=== PATIENT | female | born 1995 | race American Indian/Alaskan Native ===

== ENCOUNTER 2018-07-08 10:51 | Emergency (ER) | payer SELFPAY ==
[2018-07-08 11:03] VITALS: BP 111/60
[2018-07-08 16:23] LABS: HCG Qualitative,Urine Negative (Negative)
[2018-07-08 16:28] LABS: Bacteria,Urine 1+ /HPF (Negative); Bilirubin,Urine NEG (Negative); Blood,Urine MOD (Negative); Color,Urine Yellow (Yellow); Mucus,Urine FEW /HPF; Protein,Urine <15 mg/dL mg/dL (Negative); Urobilinogen,Urine < 2.0 mg/dL (<2.0)
== END 2018-07-08 11:53 | disposition left against medical advice (07) ==
LOC: ED 10:51
DX: R09.81 Nasal congestion (principal); Z53.21 Procedure and treatment not carried out due to patient leaving prior to being seen by health care provider
CPT/HCPCS: 81001; 81025

== ENCOUNTER 2018-07-15 13:17 | Emergency (ER) | payer SELFPAY ==
--- NOTE | 2018-07-15 13:41 | Emergency Department Report ---
Blank Doc - Documentation Documentation: 23 y/o female presents to ed c/o pelvic aches and vaginal bleedin since jul 09. neg preg test x3. unsure of std wants full check. no fever or chills. Plan urine, labs, possible pelvic exam
[2018-07-15 13:57] VITALS: BP 145/84
[2018-07-15 14:54] LABS: Bacteria,Urine 1+ /HPF (Negative); Bilirubin,Urine NEG (Negative); Blood,Urine LG (Negative); Color,Urine Yellow (Yellow); Mucus,Urine FEW /HPF; Urobilinogen,Urine < 2.0 mg/dL (<2.0)
[2018-07-15 14:57] LABS: HCG Qualitative,Urine Negative (Negative); RBC,Urine > 182.0 /HPF (0.0-6.0)
[2018-07-15] MEDS ORDERED: IBUPROFEN PO ONE (15:07)
[2018-07-15] MEDS ORDERED: ULTRAM PO ONE (15:07)
--- NOTE | 2018-07-15 16:24 | Emergency Department Report ---
<LARRY PANDYA - Last Filed: 07/15/18 16:22> ED Female HPI - General Chief complaint: Vaginal Bleeding Stated complaint: HEAVY BLEEDING/STOAMCH PAIN Time Seen by Provider: 07/15/18 13:39 Source: patient Mode of arrival: Ambulatory Limitations: No Limitations - History of Present Illness Initial comments: Patient is a 23-year-old asthmatic femalewith a past medical history who is complaining of 2 weeks of vaginal bleeding. Patient states that earlier this month she started having some spotting which is now progressed to heavier menstrual bleeding with cramps. Patient states the lower abdominal cramps are in the left lower quadrant of 6 out of 10 in severity. Patient denies any fevers chills or vaginal discharge or urinary frequency or dysuria. Patient has not had heavy bleeding to this magnitude before. - Related Data Previous Rx's Medication Instructions Recorded Last Taken Type medroxyPROGESTERone ACETATE 10 mg PO DAILY #10 tablet 07/15/18 Unknown Rx [Medroxyprogesterone Acetate] Allergies Allergy/AdvReac Type Severity Reaction Status Date / Time No Known Allergies Allergy Verified 07/08/18 11:02 ED Review of Systems Comment: All other systems reviewed and negative ED Past Medical Hx - Past Medical History Hx Asthma: Yes - Surgical History Past Surgical History?: No - Social History Smoking Status: Never Smoker Substance Use Type: Alcohol, Marijuana - Medications Home Medications: Home Medications Medication Instructions Recorded Confirmed Last Taken Type medroxyPROGESTERone ACETATE 10 mg PO DAILY #10 tablet 07/15/18 Unknown Rx [Medroxyprogesterone Acetate] ED Physical Exam - General Limitations: No Limitations General appearance: alert, in no apparent distress - Head Head exam: Present: atraumatic, normocephalic - Eye Eye exam: Present: normal appearance - ENT ENT exam: Present: mucous membranes moist - Neck Neck exam: Present: normal inspection - Respiratory Respiratory exam: Present: normal lung sounds bilaterally. Absent: respiratory distress, wheezes, rales - Cardiovascular Cardiovascular Exam: Present: regular rate, normal rhythm. Absent: systolic murmur, diastolic murmur, rubs, gallop - GI/Abdominal GI/Abdominal exam: Present: soft, tenderness (llq), normal bowel sounds. Absent: distended, guarding, rebound, rigid - Extremities Exam Extremities exam: Present: normal inspection - Back Exam Back exam: Present: normal inspection - Neurological Exam Neurological exam: Present: alert, oriented X3 - Psychiatric Psychiatric exam: Present: normal affect, normal mood - Skin Skin exam: Present: warm, dry, intact, normal color. Absent: rash ED Medical Decision Making - Lab Data Lab Results 07/15/18 Range/Units 14:31 Urine Color Yellow (Yellow) Urine Turbidity Slightly-cloudy (Clear) Urine pH 5.0 (5.0-7.0) Ur Specific Eclectic 1.023 (1.003-1.030) Urine Protein 30 mg/dl (Negative) mg/dL Urine Glucose (UA) Neg (Negative) mg/dL Urine Ketones Neg (Negative) mg/dL Urine Blood Lg (Negative) Urine Nitrite Neg (Negative) Urine Bilirubin Neg (Negative) Urine Urobilinogen < 2.0 (<2.0) mg/dL Ur Leukocyte Esterase Neg (Negative) Urine WBC (Auto) 19.0 H (0.0-6.0) /HPF Urine RBC (Auto) > 182.0 (0.0-6.0) /HPF U Epithel Cells (Auto) 5.0 (0-13.0) /HPF Urine Bacteria (Auto) 1+ (Negative) /HPF Urine Mucus Few /HPF Urine HCG, Qual Negative (Negative) ED Disposition Clinical Impression: Vaginal bleeding, Dysfunctional uterine bleeding Abdominal pain Qualifiers: Abdominal location: left lower quadrant Qualified Code(s): R10.32 - Left lower quadrant pain Ovarian cyst Qualifiers: Laterality: left Qualified Code(s): N83.202 - Unspecified ovarian cyst, left side Menorrhagia Qualifiers: Menorrahagia type: with irregular cycle Qualified Code(s): N92.1 - Excessive and frequent menstruation with irregular cycle Disposition: DC-01 TO HOME OR SELFCARE Condition: Stable Instructions: Dysfunctional Uterine Bleeding (ED), Menorrhagia (ED), Ovarian Cyst (ED) Additional Instructions: Take progesterone tablets daily for 5-10 days until bleeding stops. Take ibuprofen every 6-8 hours as needed for pain. Follow-up with a health education aide for continued management of ovarian cyst and abnormal vaginal bleeding. Return to the emergency room if pain is increased and bleeding is resolved as discussed. Prescriptions: medroxyPROGESTERone ACETATE [Medroxyprogesterone Acetate] 10 mg PO DAILY #10 tablet Referrals: JOSE ARAUJO MD [Primary Care Provider] - 3-5 Days [facility] [Provider Group] - 3-5 Days [facility] [Provider Group] - 3-5 Days [facility] [Provider Group] - 3-5 Days Forms: Work/School Release Form(ED) <SANJAY FERNÁNDEZ - Last Filed: 07/15/18 20:30> ED Review of Systems ROS: Stated complaint: HEAVY BLEEDING/STOAMCH PAIN Other details as noted in HPI ED Course Vital Signs 07/15/18 07/15/18 07/15/18 13:54 15:10 15:13 Temperature 97.9 F Pulse Rate 67 Respiratory 18 18 18 Rate Blood Pressure 145/84 O2 Sat by Pulse 99 Oximetry ED Medical Decision Making - Radiology Data Radiology results: report reviewed FINAL REPORT EXAM: US TRANSVAGINAL HISTORY: 2 weeks of continuous vag bleeding TECHNIQUE: Ultrasound pelvis transvaginal PRIORS: None. FINDINGS: Uterus is 8.2 x 3.6 x 5.5 centimeters No focal myometrial abnormality identified Endometrial stripe is 0.5 centimeters Right ovary is 4.0 x 2.6 x 2.8 centimeters. Normal sonographic appearance of the right ovary Left ovary is 3.4 x 1.9 x 3.6 centimeters. Noted is a 2 centimeter complex cystic focus in the left ovary likely a involuting cyst. Incidentally noted is a nabothian cyst in the cervix IMPRESSION: 2 centimeters cyst left ovary likely involuting follicular cyst Otherwise negative study - Medical Decision Making Patient was examined by Dr. Pandya and myself. Vitals are normal and patient is in no acute distress. Obtained a urinalysis, urine and urine hCG, and pelvis ultrasound. X-rays dictated by radiologist and report reviewed by myself. 2 centimeters cyst left ovary likely involuting follicular cyst. Otherwise negative study Patient informed of results. Dysfunctional uterine bleeding. Start progesterone 10 mg by mouth daily 10 days. Referral to health education aide for continued care. Plan discussed with patient to discharge home and treat outpatient. She agrees with ER plan. Patient discharged home in stable condition. Critical care attestation.: If time is entered above; I have spent that time in minutes in the direct care of this critically ill patient, excluding procedure time. ED Disposition Is pt being admited?: No Does the pt Need Aspirin: No Time of Disposition: 20:28
--- NOTE | 2018-07-15 20:00 | Ultrasound Report ---
FINAL REPORT EXAM: US PELVIC COMPLETE HISTORY: 2 weeks of continuous vag bleeding TECHNIQUE: Ultrasound pelvis transabdominal PRIORS: None. FINDINGS: Uterus is 8.2 x 3.6 x 5.5 centimeters No focal myometrial abnormality identified Endometrial stripe is 0.5 centimeters Right ovary is 4.0 x 2.6 x 2.8 centimeters. Normal sonographic appearance of the right ovary Left ovary is 3.4 x 1.9 x 3.6 centimeters. Noted is a 2 centimeter complex cystic focus in the left o vary likely a involuting cyst. Incidentally noted is a nabothian cyst in the cervix IMPRESSION: 2 centimeters cyst left ovary likely involuting follicular cyst Otherwise negative study is
--- NOTE | 2018-07-15 20:00 | Ultrasound Report ---
FINAL REPORT EXAM: US TRANSVAGINAL HISTORY: 2 weeks of continuous vag bleeding TECHNIQUE: Ultrasound pelvis transvaginal PRIORS: None. FINDINGS: Uterus is 8.2 x 3.6 x 5.5 centimeters No focal myometrial abnormality identified Endometrial stripe is 0.5 centimeters Right ovary is 4.0 x 2.6 x 2.8 centimeters. Normal sonographic appearance of the right ovary Left ovary is 3.4 x 1.9 x 3.6 centimeters. Noted is a 2 centimeter complex cystic focus in the left o vary likely a involuting cyst. Incidentally noted is a nabothian cyst in the cervix IMPRESSION: 2 centimeters cyst left ovary likely involuting follicular cyst Otherwise negative study
== END 2018-07-15 20:38 | disposition home or self-care (01) ==
LOC: ED 13:17
DX: N83.202 Unspecified ovarian cyst, left side (principal); N92.1 Excessive and frequent menstruation with irregular cycle; J45.909 Unspecified asthma, uncomplicated; F12.10 Cannabis abuse, uncomplicated
CPT/HCPCS: 76830; 76856; 81001; 81025

== ENCOUNTER 2019-10-31 16:48 | Emergency (ER) | payer SELFPAY ==
[2019-10-31 16:57] VITALS: BP 120/70
--- NOTE | 2019-10-31 17:39 | Emergency Department Report ---
Chief Complaint: Dental/Oral Stated Complaint: TOOTH PAIN - HPI History of Present Illness: 24-year-old -[place] female presents to the emergency room for right lower tooth pain x2 days. Patient reports that she has a broken tooth on #1 and a cavity on tooth #2. Patient reports he has been taking [id number] naproxen without much help. Patient also reports that she is been using Orajel. Patient denies any past medical history besides asthma. - Exam Vital Signs: Vital Signs 10/31/19 16:51 Temperature 98.5 F Pulse Rate 75 Respiratory 20 Rate Blood Pressure 120/70 O2 Sat by Pulse 98 Oximetry Physical Exam: Patient is alert and oriented no acute distress nontoxic in appearance Mouth: Oral mucosa is moist there is no gingiva enlargement no abscess appreciated tooth #1 has a temporary filling MSE screening note: Focused history and physical exam performed. Due to findings the following was ordered: 24-year-old -[place] female presents to the emergency room for right lower tooth pain x2 days. Patient reports that she has a broken tooth on #1 and a cavity on tooth #2. Patient reports he has been taking [id number] naproxen without much help. Patient also reports that she is been using Orajel. Patient denies any past medical history besides asthma. Discussed with patient that she can continue taking ibuprofen and Tylenol which will help more for her pain. Also discussed with patient and gave her handout to local community dentist. Patient verbalized understanding and thanked me for the referrals. ED Disposition for MSE Disposition: Z-07 MED SCREENING EXAM-LEFT Is pt being admited?: No Does the pt Need Aspirin: No Condition: Stable Additional Instructions: Take Tylenol or ibuprofen for pain management. Follow-up with a dentist handout was given to the patient.
== END 2019-10-31 17:46 | disposition left against medical advice (07) ==
LOC: ED 16:48
DX: K08.89 Other specified disorders of teeth and supporting structures (principal); Z53.21 Procedure and treatment not carried out due to patient leaving prior to being seen by health care provider

== ENCOUNTER 2020-02-06 11:02 | Emergency (ER) | payer OTHER ==
[2020-02-06 11:48] LABS: Basophils % (Auto) 0.2 % (0.0-1.8); Eosinophils # (Auto) 0.1 K/mm3 (0.0-0.4); Eosinophils % (Auto) 0.5 % (0.0-4.3); Hemoglobin 13.1 gm/dl (10.1-14.3); Lymphocytes # (Auto) 1.5 K/mm3 (1.2-5.4); Lymphocytes % (Auto) 13.1 % (13.4-35.0); Mean Corpuscular HGB Conc 33 % (30-34); Mean Corpuscular Volume 85 fl (79-97); Monocytes # (Auto) 0.7 K/mm3 (0.0-0.8); Monocytes % (Auto) 5.8 % (0.0-7.3); Platelet Count 247 K/mm3 (140-440); Red Blood Count 4.69 M/mm3 (3.65-5.03); Red Cell Distribution Width 14.3 % (13.2-15.2)
[2020-02-06 12:00] LABS: Alanine Aminotransferase 10 units/L (7-56); Albumin 4.5 g/dL (3.9-5); Blood Urea Nitrogen 9 mg/dL (7-17); Calcium 9.8 mg/dL (8.4-10.2); Hemolysis Index 16
[2020-02-06 12:10] LABS: BUN/Creatinine Ratio 13
[2020-02-06] MEDS ORDERED: SODIUM CHLORIDE 0.9% 1000 ML 1,000 ML IV ONE (12:56)
[2020-02-06] MEDS ORDERED: METOCLOPRAMIDE 10 MG/2 ML INJ IV STA (12:56)
[2020-02-06] MEDS ORDERED: diphenhydrAMINE 50 MG/ML VIAL IV STA (12:56)
--- NOTE | 2020-02-06 13:22 | Emergency Department Report ---
ED N/V/D HPI - General Chief complaint: Vaginal Bleeding Stated complaint: 6WKS /N/VOMIT Time Seen by Provider: 02/06/20 12:56 Source: patient Mode of arrival: Ambulatory Limitations: No Limitations - History of Present Illness Initial comments: 34-year-old F [place] female reports being 6 weeks and having a big issue with morning sickness is due to follow-up with [facility] on 10 February. She has not had any medications to resolve her symptoms and states further guidance and treatment options in the emergency department. States that she been having a headache had a bout of more nausea with cyclic vomiting is also worried about dehydration. Ports no fever chills or sweats. No hemoptysis no hematemesis no hematochezia. MD complaint: nausea, vomiting -: Gradual Description of Diarrhea: water Associated Abdominal Pain: No Radiation: none Severity: mild - Related Data Previous Rx's Medication Instructions Recorded Last Taken Type medroxyPROGESTERone ACETATE 10 mg PO DAILY #10 tablet 07/15/18 Unknown Rx [Medroxyprogesterone Acetate] Metoclopramide [Reglan] 10 mg PO BID #10 tab 02/06/20 Unknown Rx Pyridoxine [Vitamin B-6 50MG TAB] 50 mg PO DAILY #20 tab 02/06/20 Unknown Rx diphenhydrAMINE [Benadryl CAP] 25 mg PO Q8HR PRN #20 capsule 02/06/20 Unknown Rx Allergies Allergy/AdvReac Type Severity Reaction Status Date / Time No Known Allergies Allergy Verified 02/06/20 13:48 ED Review of Systems ROS: Stated complaint: 6WKS /N/VOMIT Other details as noted in HPI Comment: All other systems reviewed and negative ED Past Medical Hx - Past Medical History Previous Medical History?: Yes Hx Asthma: Yes - Surgical History Past Surgical History?: No - Social History Smoking Status: Never Smoker Substance Use Type: None - Medications Home Medications: Home Medications Medication Instructions Recorded Confirmed Last Taken Type medroxyPROGESTERone ACETATE 10 mg PO DAILY #10 tablet 07/15/18 Unknown Rx [Medroxyprogesterone Acetate] Metoclopramide [Reglan] 10 mg PO BID #10 tab 02/06/20 Unknown Rx Pyridoxine [Vitamin B-6 50MG TAB] 50 mg PO DAILY #20 tab 02/06/20 Unknown Rx diphenhydrAMINE [Benadryl CAP] 25 mg PO Q8HR PRN #20 capsule 02/06/20 Unknown Rx ED Physical Exam - General Limitations: No Limitations General appearance: alert, in no apparent distress - Head Head exam: Present: atraumatic, normocephalic - Eye Eye exam: Present: normal appearance, PERRL, EOMI Pupils: Present: normal accommodation - ENT ENT exam: Present: normal exam, mucous membranes moist - Neck Neck exam: Present: normal inspection, full ROM - Respiratory Respiratory exam: Present: normal lung sounds bilaterally. Absent: respiratory distress - Cardiovascular Cardiovascular Exam: Present: regular rate, normal rhythm. Absent: systolic murmur, diastolic murmur, rubs, gallop - GI/Abdominal GI/Abdominal exam: Present: soft, normal bowel sounds - Extremities Exam Extremities exam: Present: normal inspection, full ROM, normal capillary refill - Back Exam Back exam: Present: normal inspection. Absent: CVA tenderness (R), CVA tenderness (L) - Neurological Exam Neurological exam: Present: alert, oriented X3, CN II-XII intact - Psychiatric Psychiatric exam: Present: normal affect, normal mood - Skin Skin exam: Present: warm, dry, intact, normal color. Absent: rash ED Course Vital Signs 02/06/20 02/06/20 11:18 15:45 Temperature 97.8 F Pulse Rate 68 69 Respiratory 16 18 Rate Blood Pressure 100/50 128/62 [Right] O2 Sat by Pulse 100 98 Oximetry ED Medical Decision Making - Lab Data Result diagrams: 02/06/20 11:25 02/06/20 11:25 - Medical Decision Making Female presents emergency department complaining of nausea and vomiting without diarrhea. The patient is overall well-appearing and suspected to have hyperemesis gravidarum. Given the history of examination he does not appear to be an emergency cause for the symptoms such as small bowel obstruction, coronary syndrome, bowel ischemia, DKA, pancreatitis, appendicitis, acute abdomen no emergent problem. Patient was treated with Reglan, Benadryl, fluids as well as vitamin D6. After treatment patient is feeling much better tolerating p.o. fluids shows no signs of dehydration Critical care attestation.: If time is entered above; I have spent that time in minutes in the direct care of this critically ill patient, excluding procedure time. ED Disposition Clinical Impression: Hyperemesis gravidarum Disposition: DC- TO HOME OR SELFCARE Is pt being admited?: No Does the pt Need Aspirin: No Condition: Stable Instructions: Hyperemesis Gravidarum (ED) Prescriptions: diphenhydrAMINE [Benadryl CAP] 25 mg PO Q8HR PRN #20 capsule PRN Reason: Reglan use Metoclopramide [Reglan] 10 mg PO BID #10 tab Pyridoxine [Vitamin B-6 50MG TAB] 50 mg PO DAILY #20 tab Referrals: PRIMARY CARE, [Primary Care Provider] - 3-5 Days [facility] [Provider Group] - 3-5 Days Forms: Work/School Release Form(ED)
[2020-02-06] MEDS ORDERED: PYRIDOXINE 50 MG TAB PO STA (13:46)
[2020-02-06 13:59] LABS: Bacteria,Urine 1+ /HPF (Negative); Bilirubin,Urine NEG (Negative); Blood,Urine MOD (Negative); Color,Urine Yellow (Yellow); Mucus,Urine 2+ /HPF; Urobilinogen,Urine < 2.0 mg/dL (<2.0)
[2020-02-06 15:46] VITALS: BP 128/62
== END 2020-02-06 15:46 | disposition home or self-care (01) ==
LOC: ED 11:02
DX: O21.0 Mild hyperemesis gravidarum (principal); O23.41 Unspecified infection of urinary tract in pregnancy, first trimester; Z3A.01 Less than 8 weeks gestation of pregnancy
CPT/HCPCS: 36415; 80053; 81001; 84702; 85025; 86900; 86901; 87086; 96361; 96374; 96375; 99283; J1200; J2765; J7030

== ENCOUNTER 2020-02-08 12:40 | Emergency (ER) | payer SELFPAY ==
--- NOTE | 2020-02-08 12:52 | Emergency Department Report ---
Blank Doc - Documentation Documentation: 24-year-old female that presents with n/v with . Stated reglin is not helping. This initial assessment/diagnostic orders/clinical plan/treatment(s) is/are subject to change based on patient's health status, clinical progression and re- assessment by fellow clinical providers in the ED. Further treatment and workup at subsequent clinical providers discretion. Patient/guardians urged not to elope from the ED as their condition may be serious if not clinically assessed and managed. Initial orders include: 1- Patient sent to [facility] for further evaluation and treatment 2- labs
[2020-02-08 13:18] LABS: Basophils % (Auto) 0.2 % (0.0-1.8); Eosinophils % (Auto) 0.2 % (0.0-4.3); Hemoglobin 13.6 gm/dl (10.1-14.3); Lymphocytes # (Auto) 1.7 K/mm3 (1.2-5.4); Lymphocytes % (Auto) 13.2 % (13.4-35.0); Mean Corpuscular HGB Conc 33 % (30-34); Mean Corpuscular Volume 84 fl (79-97); Monocytes # (Auto) 0.8 K/mm3 (0.0-0.8); Monocytes % (Auto) 6.3 % (0.0-7.3); Platelet Count 273 K/mm3 (140-440); Red Blood Count 4.92 M/mm3 (3.65-5.03); Red Cell Distribution Width 13.9 % (13.2-15.2)
[2020-02-08 13:58] LABS: Blood Urea Nitrogen 10 mg/dL (7-17); Calcium 9.6 mg/dL (8.4-10.2); Hemolysis Index 5
[2020-02-08 13:59] LABS: BUN/Creatinine Ratio 14
[2020-02-08] MEDS ORDERED: ONDANSETRON 4 MG ODT TAB PO ONE (14:06)
--- NOTE | 2020-02-08 15:12 | Emergency Department Report ---
ED General Adult HPI - General Chief complaint: Nausea/Vomiting/Diarrhea Stated complaint: N/V/7 WEEKS PREG Time Seen by Provider: 02/08/20 12:51 Source: patient Mode of arrival: Ambulatory Limitations: No Limitations - History of Present Illness Initial comments: Patient is a 24-year-old female presents emergency room with complaints of intermittent nausea vomiting that has been ongoing for the last couple of days. She states that occasionally she has mild abdominal cramping but denies any cramping or pain currently. Patient states that she has had vaginal spotting yesterday when she wiped but denies any bleeding today. She denies any heavy bl eeding or passing clots. She denies any diarrhea, fever, urinary symptoms. Patient states that she is approximately 7 weeks . She states her last menstrual cycle was December 20. She states this is her first . She states that she has not yet received OB care. She states that she has her first appointment with her OB this (02/11/2020). Patient was evaluated in the emergency department 2 days ago for the same complaints and was given a prescription for Reglan, vitamin B6, Benadryl but she states that she is continued to have the vomiting despite the medications. - Related Data Previous Rx's Medication Instructions Recorded Last Taken Type medroxyPROGESTERone ACETATE 10 mg PO DAILY #10 tablet 07/15/18 Unknown Rx [Medroxyprogesterone Acetate] Metoclopramide [Reglan] 10 mg PO BID #10 tab 02/06/20 Unknown Rx Pyridoxine [Vitamin B-6 50MG TAB] 50 mg PO DAILY #20 tab 02/06/20 Unknown Rx diphenhydrAMINE [Benadryl CAP] 25 mg PO Q8HR PRN #20 capsule 02/06/20 Unknown Rx Ondansetron [Zofran Odt] 4 mg PO Q8HR PRN #14 tab.rapdis 02/08/20 Unknown Rx Allergies Allergy/AdvReac Type Severity Reaction Status Date / Time No Known Allergies Allergy Verified 02/06/20 13:48 ED Review of Systems ROS: Stated complaint: N/V/7 WEEKS PREG Other details as noted in HPI Comment: All other systems reviewed and negative ED Past Medical Hx - Past Medical History Previous Medical History?: Yes Hx Asthma: Yes - Social History Smoking Status: Never Smoker Substance Use Type: None - Medications Home Medications: Home Medications Medication Instructions Recorded Confirmed Last Taken Type medroxyPROGESTERone ACETATE 10 mg PO DAILY #10 tablet 07/15/18 Unknown Rx [Medroxyprogesterone Acetate] Metoclopramide [Reglan] 10 mg PO BID #10 tab 02/06/20 Unknown Rx Pyridoxine [Vitamin B-6 50MG TAB] 50 mg PO DAILY #20 tab 02/06/20 Unknown Rx diphenhydrAMINE [Benadryl CAP] 25 mg PO Q8HR PRN #20 capsule 02/06/20 Unknown Rx Ondansetron [Zofran Odt] 4 mg PO Q8HR PRN #14 tab.rapdis 02/08/20 Unknown Rx ED Physical Exam - General Limitations: No Limitations General appearance: alert, in no apparent distress, other (non toxic appearing) - Head Head exam: Present: atraumatic, normocephalic - Eye Eye exam: Present: normal appearance - ENT ENT exam: Present: mucous membranes moist - Respiratory Respiratory exam: Present: normal lung sounds bilaterally. Absent: respiratory distress, wheezes, rales, rhonchi, stridor, chest wall tenderness, accessory muscle use, decreased breath sounds, prolonged expiratory - Cardiovascular Cardiovascular Exam: Present: regular rate, normal rhythm, normal heart sounds. Absent: systolic murmur, diastolic murmur, rubs, gallop - GI/Abdominal GI/Abdominal exam: Present: soft, normal bowel sounds. Absent: distended, tenderness, guarding, rebound, rigid - Neurological Exam Neurological exam: Present: alert, oriented X3 - Psychiatric Psychiatric exam: Present: normal affect, normal mood - Skin Skin exam: Present: warm, dry, intact ED Course Vital Signs 02/08/20 02/08/20 12:56 17:33 Temperature 98.2 F 98.3 F Pulse Rate 74 68 Respiratory 18 18 Rate Blood Pressure 132/64 112/66 [Right] O2 Sat by Pulse 96 100 Oximetry ED Medical Decision Making - Lab Data Result diagrams: 02/08/20 13:01 02/08/20 13:01 Lab Results 02/08/20 02/08/20 Range/Units 13:01 13:01 WBC 12.7 H (4.5-11.0) K/mm3 RBC 4.92 (3.65-5.03) M/mm3 Hgb 13.6 (10.1-14.3) gm/dl Hct 41.0 (30.3-42.9) % MCV 84 (79-97) fl MCH 28 (28-32) pg MCHC 33 (30-34) % RDW 13.9 (13.2-15.2) % Plt Count 273 (140-440) K/mm3 Lymph % (Auto) 13.2 L (13.4-35.0) % Patrick % (Auto) 6.3 (0.0-7.3) % Eos % (Auto) 0.2 (0.0-4.3) % Baso % (Auto) 0.2 (0.0-1.8) % Lymph # 1.7 (1.2-5.4) K/mm3 Patrick # 0.8 (0.0-0.8) K/mm3 Eos # 0.0 (0.0-0.4) K/mm3 Baso # 0.0 (0.0-0.1) K/mm3 Seg Neutrophils % 80.1 H (40.0-70.0) % Seg Neutrophils # 10.2 H (1.8-7.7) K/mm3 Sodium 137 (137-145) mmol/L Potassium 3.6 (3.6-5.0) mmol/L Chloride 100.0 (98-107) mmol/L Carbon Dioxide 14 L D (22-30) mmol/L Anion Gap 27 mmol/L BUN 10 (7-17) mg/dL Creatinine 0.7 (0.6-1.2) mg/dL Estimated GFR > 60 ml/min BUN/Creatinine Ratio 14 % Glucose 74 (65-100) mg/dL Calcium 9.6 (8.4-10.2) mg/dL - Radiology Data Radiology results: report reviewed OB ultrasound first trimester INDICATION: Nausea and vomiting, spotting FINDINGS: There is a twin intrauterine . Calculated sonographic age is approximately 5 weeks and 5 days based upon crown-rump length. 2 yolk sacs are seen. cardiac activity is identified in both fetuses. There is a 1.9 cm cyst in the left ovary. IMPRESSION: There is a twin intrauterine . Calculated sonographic age is approximately 5 weeks and 5 days. There is cardiac activity in both fetuses. Signer Name: Efe Estes MD Signed: 02/08/2020 4:39 PM Workstation Name: [id number] Transcribed By: SS Dictated By: Efe Estes MD Electronically Authenticated By: Efe Estes MD Signed Date/Time: 02/08/201638 DD/ 35 TD/TT: - Medical Decision Making Patient is a 24-year-old female presents emergency room with complaints of intermittent nausea vomiting that has been ongoing for the last couple of days. She states that occasionally she has mild abdominal cramping but denies any cramping or pain currently. Patient states that she has had vaginal spotting yesterday when she wiped but denies any bleeding today. She denies any heavy bleeding or passing clots. She denies any diarrhea, fever, urinary symptoms. Patient states that she is approximately 7 weeks . She states her last menstrual cycle was December 20. She states this is her first . She states that she has not yet received OB care. She states that she has her first appointment with her OB this (02/11/2020). Patient was evaluated in the emergency department 2 days ago for the same complaints and was given a prescription for Reglan, vitamin B6, Benadryl but she states that she is continued to have the vomiting despite the medications. vitals are normal. No abdominal tenderness on exam. No clinical signs of dehydration, moist mucous membranes, normal vitals. Labs are stable, CO2 is slightly decreased likely due to vomiting, electrolytes are within normal limits, discussed oral hydration with pt. Patient had a urine culture performed 2 days ago and had no growth of bacteria. Patient is Rh+ based on medical record. OB US: There is a twin intrauterine . Calculated sonographic age is approximately 5 weeks and 5 days. There is cardiac activity in both fetuses. Patient given ODT Zofran and her nausea completely resolved, patient was able to drink water and juice while the emergency department and had no further episodes of vomiting. She is feeling much better and ready to go home. Discussed all results with patient. Patient given her ultrasound report. Discussed pelvic rest. Discussed threatened miscarriage due to spotting in early . Discussed the impo rtance of [employer] follow-up within the next 2 to 3 days, patient verbalized understanding and states she already has an appointment. pt given prescription for zofran. advised pt Please take medication as prescribed. Please increase your fluid intake. Please practice pelvic rest. please take a vitamin over the counter. Please keep your appointment with your [facility] [facility]. You need to be reevaluated by your [employer] [facility] within the next 2 to 3 days. Return to emergency room for any new or worsening symptoms. - Differential Diagnosis ectopic, IUP, hemorrhagic cyst, threatened miscarriage, subchori hemorrhage Critical care attestation.: If time is entered above; I have spent that time in minutes in the direct care of this critically ill patient, excluding procedure time. ED Disposition Clinical Impression: Abdominal cramping, Threatened miscarriage Nausea & vomiting Qualifiers: Vomiting type: unspecified Vomiting Intractability: non-intractable Qualified Code(s): R11.2 - Nausea with vomiting, unspecified Twin gestation in first trimester Qualifiers: Multiple gestation type: unspecified Qualified Code(s): O30.001 - Twin , unspecified number of placenta and unspecified number of amniotic sacs, first trimester Ovarian cyst Qualifiers: Laterality: left Qualified Code(s): N83.202 - Unspecified ovarian cyst, left side Disposition: DC- TO HOME OR SELFCARE Is pt being admited?: No Does the pt Need Aspirin: No Condition: Stable Instructions: Threatened Miscarriage (ED), Hyperemesis Gravidarum (ED) Additional Instructions: Please take medication as prescribed. Please increase your fluid intake. Please practice pelvic rest. please take a vitamin over the counter. Please keep your appointment with your [facility]. You need to be reevaluated by your [facility] [facility] within the next 2 to 3 days. Return to emergency room for any new or worsening symptoms. Prescriptions: Ondansetron [Zofran Odt] 4 mg PO Q8HR PRN #14 tab.rapdis PRN Reason: Nausea And Vomiting Referrals: PRIMARY CARE,MD [Primary Care Provider] - 2-3 Days your, [facility] [facility] [Other] - 2-3 Days Forms: Work/School Release Form(ED) Time of Disposition: 16:55 Print Language: MALTESE
--- NOTE | 2020-02-08 16:44 | Ultrasound Report ---
OB ultrasound first trimester INDICATION: Nausea and vomiting, spotting FINDINGS: There is a twin intrauterine . Calculated sonographic age is approximately 5 weeks and 5 da ys based upon crown-rump length. 2 yolk sacs are seen. cardiac activity is identified in both f etuses. There is a 1.9 cm cyst in the left ovary. IMPRESSION: There is a twin intrauterine . Calculated sonographic age is approximately 5 weeks and 5 day s. There is cardiac activity in both fetuses. Signer Name: Efe Estes MD Signed: 02/08/2020 4:39 PM Workstation Name: [id number]
[2020-02-08 17:33] VITALS: BP 112/66
== END 2020-02-08 17:34 | disposition home or self-care (01) ==
LOC: ED 12:40
DX: O30.001 Twin pregnancy, unspecified number of placenta and unspecified number of amniotic sacs, first trimester (principal); O21.8 Other vomiting complicating pregnancy; O20.0 Threatened abortion; O26.891 Other specified pregnancy related conditions, first trimester; O99.511 Diseases of the respiratory system complicating pregnancy, first trimester; N83.202 Unspecified ovarian cyst, left side; J45.909 Unspecified asthma, uncomplicated; Z3A.01 Less than 8 weeks gestation of pregnancy; Z79.899 Other long term (current) drug therapy
CPT/HCPCS: 36415; 76801; 76802; 76817; 80048; 85025; Q0162

== ENCOUNTER 2020-02-13 14:26 | Emergency (ER) | payer SELFPAY ==
[2020-02-13] MEDS ORDERED: SODIUM CHLORIDE 0.9% 1000 ML 1,000 ML IV ONE ×2 (16:20→18:25)
[2020-02-13] MEDS ORDERED: METOCLOPRAMIDE 10 MG/2 ML INJ IV ONE (16:20)
--- NOTE | 2020-02-13 16:47 | Emergency Department Report ---
ED N/V/D HPI - General Chief complaint: Nausea/Vomiting/Diarrhea Stated complaint: 6WEEKS PREG TWINS/NEEDS FLUIDS Time Seen by Provider: 02/13/20 16:20 Source: patient Mode of arrival: Ambulatory Limitations: No Limitations - History of Present Illness Initial comments: 24-year-old -[place] female presents to the emergency room stating that her [facility] provider sent her in for IV fluids. Patient reports that she has been having nausea and vomiting. Patient reports that she is 6 weeks with twins. Patient states that she was here last week twice for the same complaint. Patient reports that the Zofran and the Reglan is not helping with her nausea and vomiting. Patient denies any fever chills no vaginal bleeding no vaginal discharge. MD complaint: nausea, vomiting Onset/Timin -: week(s) Description of Vomiting: food contents Associated Abdominal Pain: No Severity: moderate Consistency: intermittent Improves with: none Worsens with: none Associated Symptoms: denies other symptoms - Related Data Previous Rx's Medication Instructions Recorded Last Taken Type medroxyPROGESTERone ACETATE 10 mg PO DAILY #10 tablet 07/15/18 Unknown Rx [Medroxyprogesterone Acetate] Metoclopramide [Reglan] 10 mg PO BID #10 tab 02/06/20 Unknown Rx Pyridoxine [Vitamin B-6 50MG TAB] 50 mg PO DAILY #20 tab 02/06/20 Unknown Rx diphenhydrAMINE [Benadryl CAP] 25 mg PO Q8HR PRN #20 capsule 02/06/20 Unknown Rx Ondansetron [Zofran Odt] 4 mg PO Q8HR PRN #14 tab.rapdis 02/08/20 Unknown Rx Allergies Allergy/AdvReac Type Severity Reaction Status Date / Time No Known Allergies Allergy Verified 02/06/20 13:48 ED Review of Systems ROS: Stated complaint: 6WEEKS PREG TWINS/NEEDS FLUIDS Other details as noted in HPI ED Past Medical Hx - Past Medical History Previous Medical History?: Yes Hx Asthma: Yes - Social History Smoking Status: Never Smoker Substance Use Type: None - Medications Home Medications: Home Medications Medication Instructions Recorded Confirmed Last Taken Type medroxyPROGESTERone ACETATE 10 mg PO DAILY #10 tablet 07/15/18 Unknown Rx [Medroxyprogesterone Acetate] Metoclopramide [Reglan] 10 mg PO BID #10 tab 02/06/20 Unknown Rx Pyridoxine [Vitamin B-6 50MG TAB] 50 mg PO DAILY #20 tab 02/06/20 Unknown Rx diphenhydrAMINE [Benadryl CAP] 25 mg PO Q8HR PRN #20 capsule 02/06/20 Unknown Rx Ondansetron [Zofran Odt] 4 mg PO Q8HR PRN #14 tab.rapdis 02/08/20 Unknown Rx ED Physical Exam - General Limitations: No Limitations General appearance: alert, in no apparent distress - Head Head exam: Present: atraumatic, normocephalic - Eye Eye exam: Present: normal appearance - ENT ENT exam: Present: mucous membranes moist - Respiratory Respiratory exam: Present: normal lung sounds bilaterally. Absent: respiratory distress - Cardiovascular Cardiovascular Exam: Present: regular rate, normal rhythm. Absent: systolic murmur, diastolic murmur, rubs, gallop - GI/Abdominal GI/Abdominal exam: Present: soft. Absent: distended, tenderness - Neurological Exam Neurological exam: Present: alert, oriented X3, normal gait - Psychiatric Psychiatric exam: Present: normal affect, normal mood - Skin Skin exam: Present: warm, dry, intact, normal color. Absent: rash ED Course Vital Signs 02/13/20 14:43 Temperature 98.2 F Pulse Rate 74 Respiratory 16 Rate Blood Pressure 111/75 O2 Sat by Pulse 98 Oximetry - Reevaluation(s) Reevaluation #1: 02/13/20 19:47 Patient reports she feels much better after having 2 L of fluid. Patient be discharged home in stable condition. ED Medical Decision Making - Lab Data Result diagrams: 02/13/20 16:34 02/13/20 16:34 Critical care attestation.: If time is entered above; I have spent that time in minutes in the direct care of this critically ill patient, excluding procedure time. ED Disposition Clinical Impression: Hyperemesis gravidarum Disposition: DC-01 TO HOME OR SELFCARE Is pt being admited?: No Does the pt Need Aspirin: No Condition: Stable Instructions: Hyperemesis Gravidarum (ED) Additional Instructions: Please continue to take your antibiotics nausea medication increase your fluid intake and follow-up with your [employer] [facility]. Referrals: PRIMARY CARE,MD [Primary Care Provider] - 3-5 Days You are, [employer] [Other] - 3-5 Days Forms: Work/School Release Form(ED)
[2020-02-13 16:59] LABS: Basophils % (Auto) 0.2 % (0.0-1.8); Eosinophils # (Auto) 0.2 K/mm3 (0.0-0.4); Eosinophils % (Auto) 1.7 % (0.0-4.3); Hematocrit 40.5 % (30.3-42.9); Hemoglobin 13.3 gm/dl (10.1-14.3); Lymphocytes % (Auto) 15.4 % (13.4-35.0); Mean Corpuscular HGB Conc 33 % (30-34); Mean Corpuscular Volume 84 fl (79-97); Monocytes # (Auto) 1.2 K/mm3 (0.0-0.8); Monocytes % (Auto) 9.6 % (0.0-7.3); Platelet Count 289 K/mm3 (140-440); Red Blood Count 4.81 M/mm3 (3.65-5.03); Red Cell Distribution Width 13.7 % (13.2-15.2)
[2020-02-13 17:08] LABS: Alanine Aminotransferase 10 units/L (7-56); Albumin 4.8 g/dL (3.9-5); BUN/Creatinine Ratio 17; Blood Urea Nitrogen 12 mg/dL (7-17); Calcium 9.5 mg/dL (8.4-10.2); Hemolysis Index 5
--- NOTE | 2020-02-13 17:40 | Ultrasound Report ---
ULTRASOUND ABDOMEN, LIMITED (RIGHT UPPER QUADRANT) INDICATION / CLINICAL INFORMATION: N/V concern for gallbladder disease. COMPARISON: None available. FINDINGS: PANCREAS: Visualized portion shows no significant abnormality. LIVER: No significant abnormality. GALLBLADDER: No significant abnormality. BILE DUCTS: No significant abnormality. Common bile duct measures 1 mm. FREE FLUID: None. ADDITIONAL FINDINGS: None. IMPRESSION: 1. No significant sonographic abnormality of the right upper quadrant. Signer Name: Alejandro Ravi MD Signed: 02/13/2020 5:35 PM Workstation Name: [id number]
[2020-02-13 19:55] VITALS: BP 118/86
== END 2020-02-13 19:55 | disposition home or self-care (01) ==
LOC: ED 14:26
DX: O21.0 Mild hyperemesis gravidarum (principal); O99.511 Diseases of the respiratory system complicating pregnancy, first trimester; J45.909 Unspecified asthma, uncomplicated; Z3A.01 Less than 8 weeks gestation of pregnancy; Z79.899 Other long term (current) drug therapy
CPT/HCPCS: 36415; 76705; 80053; 85025; 96360; 96361; 99284; J7030; J2765

== ENCOUNTER 2020-03-29 17:18 | Emergency (ER) | payer MEDICAID ==
[2020-03-29 17:27] VITALS: BP 112/39
--- NOTE | 2020-03-29 17:46 | Event Note ---
ED Screening Note ED Screening Note: diagnosed with miscarriage life mid wife yesterday started her on misoprostol states she had spotting today lower abd pain, feels like contractions changing 3-4 pads per hour LNMP: december 20 pmhx none no allergies to meds st , states it was twin gestation This initial assessment/diagnostic orders/clinical plan/treatment(s) is/are subject to change based on patients health status, clinical progression and re- assessment by fellow clinical providers in the ED. Further treatment and workup at subsequent clinical providers discretion. Patient/guardian urged not to elope from the ED as their condition may be serious if not clinically assessed and managed. Initial orders include: labs, UA
[2020-03-29 18:06] LABS: Basophils % (Auto) 0.2 % (0.0-1.8); Eosinophils # (Auto) 0.1 K/mm3 (0.0-0.4); Eosinophils % (Auto) 0.6 % (0.0-4.3); Hematocrit 37.6 % (30.3-42.9); Hemoglobin 12.5 gm/dl (10.1-14.3); Lymphocytes # (Auto) 1.2 K/mm3 (1.2-5.4); Lymphocytes % (Auto) 7.3 % (13.4-35.0); Mean Corpuscular HGB Conc 33 % (30-34); Mean Corpuscular Volume 85 fl (79-97); Monocytes # (Auto) 0.6 K/mm3 (0.0-0.8); Monocytes % (Auto) 3.6 % (0.0-7.3); Platelet Count 254 K/mm3 (140-440); Red Blood Count 4.42 M/mm3 (3.65-5.03); Red Cell Distribution Width 15.4 % (13.2-15.2)
[2020-03-29 18:26] LABS: Alanine Aminotransferase 30 units/L (7-56); Albumin 4.4 g/dL (3.9-5); Blood Urea Nitrogen 7 mg/dL (7-17); Calcium 9.5 mg/dL (8.4-10.2); Hemolysis Index 14
[2020-03-29 18:36] LABS: BUN/Creatinine Ratio 12
[2020-03-29 19:29] LABS: Bilirubin,Urine NEG (Negative); Blood,Urine LG (Negative); Color,Urine Red (Yellow); Mucus,Urine 3+ /HPF; Urobilinogen,Urine < 2.0 mg/dL (<2.0)
[2020-03-29 19:31] LABS: Protein,Urine >500 mg/dL (Negative); RBC,Urine > 182.0 /HPF (0.0-6.0)
[2020-03-29] MEDS ORDERED: HYDROcodone/ACETAMINOPHEN 5-325 MG TAB ONE (20:00)
[2020-03-29] MEDS ORDERED: HYDROcodone/ACETAMINOPHEN 5-325 MG TAB PO ONE (20:00)
--- NOTE | 2020-03-29 20:28 | Ultrasound Report ---
US OB <= 14 weeks fetus INDICATION / CLINICAL INFORMATION: miscarriage. COMPARISON: 02/08/2020 FINDINGS: No intrauterine is seen on today's exam. There may be retained products of conception in th e endometrial canal. The ovaries are normal in size and appearance. No free fluid is seen in the pelv is. IMPRESSION: No evidence for an intrauterine on today's exam. There may be retained products of concepti on in the endometrial canal Signer Name: Jay Duffy MD FACR Signed: 03/29/2020 8:24 PM Workstation Name: [id number]
--- NOTE | 2020-03-29 20:47 | Emergency Department Report ---
ED HPI - General Chief complaint: Vaginal Bleeding Stated complaint: ABD PAIN Time Seen by Provider: 03/29/20 17:43 Source: patient, EMS Mode of arrival: Stretcher Limitations: No Limitations - History of Present Illness Initial comments: pt is a 4 y/o G1, P0, A0 who presents for vaginal bleeding x today with 5/10 abd pain and cramping , pt states she was 13 weeks with twins , saw OBGYN yesterday started on Misoprostol and Miscarriage dx, states she was advised to presents to ED for evaluation. MD Complaint: abdominal pain, vaginal bleeding - Related Data Previous Rx's Medication Instructions Recorded Last Taken Type medroxyPROGESTERone ACETATE 10 mg PO DAILY #10 tablet 07/15/18 Unknown Rx [Medroxyprogesterone Acetate] Metoclopramide [Reglan] 10 mg PO BID #10 tab 02/06/20 Unknown Rx Pyridoxine [Vitamin B-6 50MG TAB] 50 mg PO DAILY #20 tab 02/06/20 Unknown Rx diphenhydrAMINE [Benadryl CAP] 25 mg PO Q8HR PRN #20 capsule 02/06/20 Unknown Rx Ondansetron [Zofran Odt] 4 mg PO Q8HR PRN #14 tab.rapdis 02/08/20 Unknown Rx Acetaminophen/Codeine [Tylenol 1 tab PO Q6H PRN #12 tab 03/29/20 Unknown Rx /Codeine # 3 tab] cephALEXin [Keflex] 500 mg PO BID 7 Days #14 cap 03/29/20 Unknown Rx Allergies Allergy/AdvReac Type Severity Reaction Status Date / Time No Known Allergies Allergy Verified 02/06/20 13:48 ED Review of Systems ROS: Stated complaint: ABD PAIN Other details as noted in HPI Constitutional: denies: chills, fever Eyes: denies: eye pain, eye discharge, vision change ENT: denies: ear pain, throat pain Respiratory: denies: cough, shortness of breath, wheezing Cardiovascular: denies: chest pain, palpitations Endocrine: no symptoms reported Gastrointestinal: abdominal pain. denies: nausea, vomiting, diarrhea, constipation, melena Genitourinary: denies: urgency, dysuria, frequency, hematuria, discharge Musculoskeletal: back pain. denies: joint swelling, arthralgia Skin: denies: rash, lesions Neurological: denies: headache, weakness, paresthesias Psychiatric: denies: anxiety, depression Hematological/Lymphatic: denies: easy bleeding, easy bruising ED Past Medical Hx - Past Medical History Hx Asthma: Yes - Surgical History Past Surgical History?: No - Social History Smoking Status: Never Smoker - Medications Home Medications: Home Medications Medication Instructions Recorded Confirmed Last Taken Type medroxyPROGESTERone ACETATE 10 mg PO DAILY #10 tablet 07/15/18 Unknown Rx [Medroxyprogesterone Acetate] Metoclopramide [Reglan] 10 mg PO BID #10 tab 02/06/20 Unknown Rx Pyridoxine [Vitamin B-6 50MG TAB] 50 mg PO DAILY #20 tab 02/06/20 Unknown Rx diphenhydrAMINE [Benadryl CAP] 25 mg PO Q8HR PRN #20 capsule 02/06/20 Unknown Rx Ondansetron [Zofran Odt] 4 mg PO Q8HR PRN #14 tab.rapdis 02/08/20 Unknown Rx Acetaminophen/Codeine [Tylenol 1 tab PO Q6H PRN #12 tab 03/29/20 Unknown Rx /Codeine # 3 tab] cephALEXin [Keflex] 500 mg PO BID 7 Days #14 cap 03/29/20 Unknown Rx ED Physical Exam - General Limitations: No Limitations General appearance: alert, in no apparent distress - Head Head exam: Present: atraumatic, normocephalic - Eye Eye exam: Present: normal appearance - ENT ENT exam: Present: mucous membranes moist - Neck Neck exam: Present: normal inspection - Respiratory Respiratory exam: Present: normal lung sounds bilaterally. Absent: respiratory distress, wheezes, stridor - Cardiovascular Cardiovascular Exam: Present: regular rate, normal rhythm. Absent: systolic murmur, diastolic murmur, rubs, gallop - GI/Abdominal GI/Abdominal exam: Present: soft, tenderness (bilat lowre abd), normal bowel sounds. Absent: distended, guarding, rebound, rigid, bruit, hernia - Rectal Rectal exam: Present: deferred - External exam: Present: other (exam deferred by patient ) - Extremities Exam Extremities exam: Present: normal inspection, full ROM. Absent: tenderness - Back Exam Back exam: Present: normal inspection, full ROM. Absent: tenderness, CVA tenderness (R), CVA tenderness (L) - Neurological Exam Neurological exam: Present: alert, oriented X3, CN II-XII intact, normal gait, reflexes normal - Psychiatric Psychiatric exam: Present: normal affect, normal mood - Skin Skin exam: Present: warm, dry, intact, normal color. Absent: rash ED Course Vital Signs 03/29/20 17:21 Temperature 98.2 F Pulse Rate 65 Respiratory 18 Rate Blood Pressure 112/39 O2 Sat by Pulse 100 Oximetry ED Medical Decision Making - Lab Data Result diagrams: 03/29/20 17:52 03/29/20 17:52 Labs 03/29/20 03/29/20 03/29/20 17:52 17:52 17:52 WBC 16.4 H RBC 4.42 Hgb 12.5 Hct 37.6 MCV 85 MCH 28 MCHC 33 RDW 15.4 H Plt Count 254 Lymph % (Auto) 7.3 L Giles % (Auto) 3.6 Eos % (Auto) 0.6 Baso % (Auto) 0.2 Lymph # (Auto) 1.2 Giles # (Auto) 0.6 Eos # (Auto) 0.1 Baso # (Auto) 0.0 Seg Neutrophils % 88.3 H Seg Neutrophils # 14.5 H Sodium 137 Potassium 3.8 Chloride 101.8 Carbon Dioxide 20 L Anion Gap 19 BUN 7 Creatinine 0.6 Estimated GFR > 60 BUN/Creatinine Ratio 12 Glucose 128 H Calcium 9.5 Total Bilirubin 0.20 AST 20 ALT 30 Alkaline Phosphatase 42 Total Protein 7.1 Albumin 4.4 Albumin/Globulin Ratio 1.6 HCG, Quant 1743 H Urine Color Urine Turbidity Urine pH Ur Specific [place] Urine Protein Urine Glucose (UA) Urine Ketones Urine Blood Urine Nitrite Urine Bilirubin Urine Urobilinogen Ur Leukocyte Esterase Urine WBC (Auto) Urine RBC (Auto) U Epithel Cells (Auto) Urine Mucus 03/29/20 19:01 WBC RBC Hgb Hct MCV MCH MCHC RDW Plt Count Lymph % (Auto) Giles % (Auto) Eos % (Auto) Baso % (Auto) Lymph # (Auto) Giles # (Auto) Eos # (Auto) Baso # (Auto) Seg Neutrophils % Seg Neutrophils # Sodium Potassium Chloride Carbon Dioxide Anion Gap BUN Creatinine Estimated GFR BUN/Creatinine Ratio Glucose Calcium Total Bilirubin AST ALT Alkaline Phosphatase Total Protein Albumin Albumin/Globulin Ratio HCG, Quant Urine Color Red Urine Turbidity Turbid Urine pH 6.0 Ur Specific [place] 1.029 Urine Protein >500 Urine Glucose (UA) 50 Urine Ketones Neg Urine Blood Lg Urine Nitrite Neg Urine Bilirubin Neg Urine Urobilinogen < 2.0 Ur Leukocyte Esterase Sm Urine WBC (Auto) 16.0 H Urine RBC (Auto) > 182.0 U Epithel Cells (Auto) 25.0 H Urine Mucus 3+ - Radiology Data Radiology results: report reviewed, image reviewed Findings Reporting MD: Jay Duffy Dictation Time: March 29, 2020 19:24 T ranscriptionist: Not available Dot Compliance Coordinator Date: US OB <= 14 weeks fetus INDICATION / CLINICAL INFORMATION: miscarriage. COMPARISON: 02/08/2020 FINDINGS: No intrauterine is seen on today's exam. There may be retained products of conception in the endometrial canal. The ovaries are normal in size and appearance. No free fluid is seen in the pelvis. IMPRESSION: No evidence for an intrauterine on today's exam. There may be retained products of conception in the endometrial canal Signer Name: Jay Duffy MD FACR Signed: 03/29/2020 7:24 PM Workstation Name: [email or web address] - Medical Decision Making MPRESSION: No evidence for an intrauterine on today's exam. There may be retained products of conception in the endometrial canal, OBGYN called Dr. Goodman, recommendation call in am for appointment, this is expected course with Misoprostol. UA: noted for WBC, Luek will tx for UTI, ABO: Bpos, h/h normal, wbc: 16.5 , pt berbalized agreement and understanding of discharge plan , dc'd t home at this time in stable condition. Critical care attestation.: If time is entered above; I have spent that time in minutes in the direct care of this critically ill patient, excluding procedure time. ED Disposition Clinical Impression: Miscarriage Disposition: DC-01 TO HOME OR SELFCARE Is pt being admited?: No Does the pt Need Aspirin: No Condition: Stable Instructions: Spontaneous Miscarriage (ED) Additional Instructions: Follow up with OBGYN , call in am to make sooner appointment, return to ed if symptoms worsen. Prescriptions: cephALEXin [Keflex] 500 mg PO BID 7 Days #14 cap Acetaminophen/Codeine [Tylenol /Codeine # 3 tab] 1 tab PO Q6H PRN #12 tab PRN Reason: pain Referrals: CYNTHIA GOODMAN MD [Staff Physician] - 3-5 Days Forms: Work/School Release Form(ED) Time of Disposition: 20:58
== END 2020-03-29 21:15 | disposition home or self-care (01) ==
LOC: ED 17:18
DX: O03.9 Complete or unspecified spontaneous abortion without complication (principal); J45.909 Unspecified asthma, uncomplicated; Z79.899 Other long term (current) drug therapy; Z3A.13 13 weeks gestation of pregnancy
CPT/HCPCS: 36415; 76801; 80053; 81001; 84702; 85025; 87086